=== PATIENT | female | born 2000 | race Caucasian/White ===

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

== ENCOUNTER 2024-03-26 10:44 | Outpatient (AMB) | payer OTHER, SELFPAY ==
--- NOTE | 2024-03-26 10:49 | A.OFFPC_ITS ---
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 Intake Note: new patient to establish care Enrollment Processor Required: No Allergies seasonal Allergy (Unknown, Uncoded 03/26/24 11:23) Hives Medication List - Last Reconciled 03/26/24 by ENDER Rivera No Known Home Meds Tobacco use date assessed: 03/26/24 Dental Screening Dental Screen Date: 03/26/24 Did you have a dental visit in the last 12 months?: Yes Did you have a dental problem in the last 6 months where you did not have access to dental care?: No Was dental information given to patient?: Patient has dentist HPI HPI Comments History of Present Illness Details 23 y/o F with hx of palpitations, family hx of cervical cancer (Mom), family hx of Breast ca (MGM & Paternal Aunt), seasonal allergies 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 The symptoms were persistent for about a week but resolved spontaneously. An evaluation was conducted including a 48-hour Holter monitor which identified mild tachycardia during sleep. She was referred to cardiology, but by the time the referral was processed, her symptoms had resolved. Her blood work, including thyroid function tests, during this period was normal. Since then, she has not experienced further episodes. Does correlate onset of sx w/ taking claritin for seasonal allergies, which she has since stopped. Past medical history is significant for seasonal allergies, which occasionally causes swollen tonsils and congestion attributed to allergic rhinitis. She has attempted to use Claritin, but discontinued due to concerns over cardiac symptoms. No further pharmacologic interventions have been pursued for her allergies. Health Maintenance - Immunizations: Current with flu vaccin e as required for nursing school. - Gynecological: Active with silv[facility] SERNA Pap smear completed in 2021. - Lifestyle: Engages in regular physical activity, including weight lifting and yoga; maintains a balanced diet. - Family history: Notified of familial b reast and cervical cancer history; advised to verify BRCA status. 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 - Education: Currently in nursing school with expected graduation in July. - Family: Lives with mother, stepfather, and two siblings. - Physical Activity: Regularly engages i n weight lifting and yoga. - Family History: Mother had cervical ca ncer, grandmother had breast cancer, and paternal aunt has breast cancer. Review of Systems - Cardiovascular: Denies current palpita tions. - Hematologic/Lymphatic: Denies swelling or tenderness. - Respiratory: Denies dyspnea. - Eyes: Denies headaches or visual mascorro es. - Musculoskeletal: Denies joint pain or swelling. - Genitourinary: Denies abnormal urinati on. - Neurologic: Denies headaches or dizzin ess. - Skin: Denies rashes or skin changes. Exam: General: Well developed, well nourished, in no acute distress. Appears stated age. Head: Normocephalic, atraumatic. Eyes: Pupils are equal, round and reactive to light and accommodation. Conjunctivae are clear. Vision grossly normal. Ears: TMs clear AU, EACS WNL Nose: Patent, without discharge. Mouth: There are no ulcers or lesions noted. No inflammation, no post nasal drip, no plaques nor exudates. Tonsillar hypertrophy Neck: Supple, no adenopathy or thyromegaly. Lungs: Clear to auscultation bilaterally. No rales, rhonchi or wheeze noted. Good air flow in all chahal. Heart: Regular rate and rhythm. No murmurs, click, rubs or gallops are noted. Abdomen: Bowel sounds present in all quadrants. The abdomen is soft, nontender, with no masses or organomegaly noted. No hernias are noted. Musculoskeletal: Joints are nontender, without swelling, redness, or effusions. Range of motion is observed to be normal. Pulses: Peripheral pulses are equal and palpable bilaterally. Extremities: No clubbing, cyanosis nor edema is noted. Neurologic: Gait and station normal. Cranial Nerves 2-12 intact. Motor strength grossly symmetrical and intact. No sensory loss. Balance normal. Skin: No rashes, ulcers, or lesions noted. Turgor is good. Skin color is good. Hair and nails are without abnormalities. Psych: Normal eye contact, affect and mood appropriate, and normal interactions. Patient is alert and appropriate to context. Results - Labs: Recent thyroid function tests no rmal per report. - Tests and Diagnostics: Holter monitor showed mild tachycardia during sleep. per report Plan - Request recent laboratory and diagnost ic records from previous healthcare facilities, including Holter and immunization records. - Discuss seasonal allergy management; c onsider non-pharmacological interventions like saline nasal rinses. - Encourage regular breast self-examinat ions and verify family BRCA testing results. - Continue physical activity routine, en courage yoga and gym activities for stress management. - Use patient portal for all non-emergen t communication to ensure direct contact with the medical team. - Defer labs as she reports she does not like needles and just had labs completed. Patient was informed and verbally consented to the use of an ambient scribe for clinic note documentation during this visit. Discussion Notes I discussed with the patient the resolution of her prior tachycardia symptoms and the lack of current symptoms. We reviewed the importance of maintaining up-to-date immunizations and health screenings, especially given her family history of cancer. The patient was advised to follow up on BRCA screenings within her family and complete any necessary genetic testing. The benefits of a healthy lifestyle were highlighted, including regular exercise and balanced nutrition. We also reviewed the management of her seasonal allergies, suggesting alternative measures like saline rinses, considering her sensitivity to medications such as Claritin. It was emphasized that communication should preferentially be through the patient portal to ensure timely and effective correspondence. Patient Instructions - Enroll in the patient portal for soraida r communication. - Maintain current exercise and dietary habits. - Investigate family BRCA testing status . - Manage seasonal allergies using non-me dication-based methods, and avoid Claritin if it exacerbates symptoms. - Perform regular breast self-exams. - Ensure all health records are up to da te, including immunizations and previous lab results. - Make a follow-up appointment as needed or if any new symptoms appear. - RTO 1 year for CPE sooner prn. [facility] Medical History (Updated 03/26/24 @ 15:09 by Shreya Buitrago [facility]) No pertinent past medical history No known health problems Surgical History (Updated 03/26/24 @ 10:59 by Chelsi Gates MA) No pertinent past surgical history Family History (Updated 03/26/24 @ 10:59 by Chelsi Gates MA) Father Mental health disorder Substance abuse Hypertension Maternal Grandmother Cancer Maternal Aunt Cancer Mother Cancer Brother Cardiovascular disease Social History (Updated 03/26/24 @ 10:57 by Chelsi Gates MA) Household Members: Family Both parents involved: Yes Caregiver staying overnight: No Housing: House Are you a primary school child care attendant to a significant other at home: No Do you presently have visiting nurse or other home services: No 75 years or older and lives alone: No Alcohol intake: current Alcohol intake frequency: a few times a month Patient Tobacco Use Status: Never used Tobacco e-Cigarette/Vaping Use: Never Used Second Hand Smoke Exposure: No Current occupational status: employed and student 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 1. Little interest or pleasure in doing things: not at all 2. Feeling down, depressed, or hopeless: not at all 3. Trouble falling or staying asleep, or sleeping too much: not at all 4. Feeling tired or having little energy: not at all 5. Poor appetite or overeating: not at all 6. Feeling bad about yourself - or that you are a failure or have let yourself or your family down: not at all 7. Trouble concentrating on things, such as reading the newspaper or watching television: not at all 8. Moving or speaking so slowly that other people could have noticed. Or the opposite - being so fidgety or restless that you have been moving around a lot more than usual: not at all 9. Thoughts that you would be better off or of hurting yourself in some way: not at all Total score: 0 Depression Screening Interpretation: Negative Depression Screening Done: Yes 53104 - PHQ-9 Billing: Yes Source: Developed by Drs. Anoop Colbert, Magalys Dixon, Raza Leal and colleagues, with an educational sergei from [employer]. Thrive Questionnaire Date Thrive assessed: 03/26/24 I am a: Patient What is your living situation today?: I have a steady place to live Within the past 12 months, did the food you bought not last and you didn't have the money to get more?: Never true Within the past 12 months, did you worry whether your food would run out before you got money to buy more?: Never true Do you have trouble paying for medicines?: No Do you have trouble getting transportation to medical appointments?: No Do you have trouble paying your heating and electricity bill?: No Do you have trouble taking care of your child, family member or friend?: No Do you have trouble with day-to-day activities such as bathing, preparing meals, shopping, managing finances, etc.?: No Are you currently unemployed and looking for a job?: No Are you interested in more education?: Yes Please select the resources that you would like help with: None Currently or been in a relationship where the following occur: No concerns reported THRIVE Score: 0 AUDIT C Alcohol Use Questionnaire (AUDIT-C) 1. How often do you have a drink containing alcohol?: Monthly or less 2. How many drinks containing alcohol do you have on a typical day when you are drinking?: 3 or 4 3. How often do you have six or more drinks on one occasion?: Never Total Score: 2 Score Reviewed/Action Taken: Yes ZEKE-7 AMB Questionnaire ZEKE-7 Date ZEKE - 7 assessed: 03/26/24 Feeling nervous, anxious, or on edge: 0 = Not at all Not being able to stop or control worryin = Not at all Worrying too much about different things: 0 = Not at all Trouble relaxin = Not at all Being so restless that it is hard to sit still: 0 = Not at all Becoming easily annoyed or irritable: 0 = Not at all Feeling afraid as if something awful might happen: 0 = Not at all Total ZEKE-7 score (0-4 normal; 5-9 mild; 10-14 moderate; 15-21 severe): 0 Source: Developed by Drs. Anoop Colbert, Magalys Dixon, Raza Leal and colleagues, with an educational sergei from [employer]. ZEKE-7 Assessment Billing ZEKE-7 Assessment Tool: ZEKE-7 Assessment 67499 Physical exam (Primary Care) Vital Signs: Last Vital Signs Temp 98.1 F 03/26/24 11:00 Pulse 97 03/26/24 11:00 Resp 13 03/26/24 11:00 BP 122/70 03/26/24 11:00 Pulse Ox 99 03/26/24 11:00 Oxygen Delivery Method Room Air 03/26/24 11:00 BMI result Body Mass Index 26.4 Tobacco/Smoking Status: Tobacco use Status Tobacco use date assessed 03/26/24 03/26/24 10:59 Patient Tobacco Use Status Never used Tobacco 03/26/24 10:59 e-Cigarette/Vaping Use Never Used 03/26/24 10:59 PHQ-9: PHQ-9 Score PHQ-9: Total score 0 03/26/24 11:37 Depression Screening Interpretation: Negative Thrive Assessment: Date of Thrive Assessment Date Thrive assessed 03/26/24 03/26/24 10:59 Currently or been in a relationship where the following occur: No concerns reported Coding Level of Care Code New Pt Prev Care 18-39yr(80655 Diagnoses Encounter for general adult medical examination without abnormal findings Z00.00 Family history of breast cancer Z80.3 Family history of cervical cancer Z80.49 Seasonal allergies J30.2 Chronic tonsillar hypertrophy J35.1 Additional Codes ZEKE-7 Assessment Billing - ZEKE-7 Assessment Tool: ZEKE-7 Assessment 69298 ([id number]) PHQ-9 - 81774 - PHQ-9 Billing: Yes ([id number]) Assessment & Plan Assessment & Plan (1) Encounter for general adult medical examination without abnormal findings: Code(s): Z00.00 - Encounter for general adult medical examination without abnormal findings (2) Family history of breast cancer: Comment: MGM and Paternal aunt Code(s): Z80.3 - Family history of malignant neoplasm of breast Category: Medical (3) Family history of cervical cancer: Comment: Mom Code(s): Z80.49 - Family history of malignant neoplasm of other genital organs Category: Medical (4) Seasonal allergies: Code(s): J30.2 - Other seasonal allergic rhinitis Category: Medical (5) Chronic tonsillar hypertrophy: Code(s): J35.1 - Hypertrophy of tonsils Category: Medical Plan . Medications: Discontinued ketorolac Discontinued Reason: Patient no longer taking 10 mg PO Q6H 5 days PRN 20 tabs 0RF pain Patient Instructions: Health screenings for women You should visit your health care provider from time to time, even if you are healthy. The purpose of these visits is to: Screen for medical issues Assess your risk for future medical problems Encourage a healthy lifestyle Update vaccinations and other preventive care services Help you get to know your provider in case of an illness Information Even if you feel fine, you should still see your provider for regular checkups. These visits can help you avoid problems in the future. For example, the only way to find out if you have high blood pressure is to have it checked regularly. High blood sugar and high cholesterol levels also may not have any symptoms in the early stages. A simple blood test can check for these conditions. There are specific times when you should see your provider or receive specific health screenings. The [place] Preventive Services Task Force publishes a list of recommended screenings. Below are screening guidelines for women ages 18 to 39. BLOOD PRESSURE SCREENING Your blood pressure should be checked at least once every 3 to 5 years if: Your blood pressure is in the normal range (top number less than 120 mm Hg and bottom number less than 80 mm Hg) You don't have risk factors for high blood pressure Ask your provider if you need your blood pressure checked more often if: The top number is 120 to 129 mm Hg or the bottom number is 70 to 79 mm Hg You have diabetes, heart disease, kidney problems, are overweight, or have certain other health conditions You have a first-degree relative with high blood pressure You are Black You had high blood pressure during a If the top number is 130 mm Hg or greater or the bottom number is 80 mm Hg or greater, this is considered stage 1 hypertension. Schedule an appointment with your provider to learn how you can reduce your blood pressure. Watch for blood pressure screenings in your area. Ask your provider if you can stop in to have your blood pressure checked. BREAST CANCER SCREENING Experts do not agree about the benefits of breast self-exams in finding breast cancer or saving lives. Talk to your provider about what is best for you. A screening mammogram is not recommended for most women under age 40. Your provider may discuss and recommend mammograms, MRI scans, or ultrasounds if you have an increased risk for breast cancer, such as: A mother or sister who had breast cancer at a young age (most often starting screening earlier than the age the close relative was diagnosed) You carry a high-risk genetic marker CERVICAL CANCER SCREENING Cervical cancer screening should start at age 21 years unless your provider advises otherwise. After the first test: Women ages 21 through 29 should have a Pap test every 3 years. Exoprts do not agree on whether HPV testing is recommended for this age group. Women ages 30 through 65 should be screened with either a Pap test every 3 years or the HPV test every 5 years or both tests every 5 years (called cotesting ). Women who have been treated for precancer (cervical dysplasia) should continue to have Pap tests for 20 years after treatment or until age 65, whichever is longer. If you have had your uterus and cervix removed (total hysterectomy), and you have not been diagnosed with cervical cancer or precancer (high grade cervical neoplasia), you do not need cervical cancer screening. CHOLESTEROL SCREENING Cholesterol screening should begin at: Age 45 for women with no known risk factors for coronary heart disease Age 20 for women with known risk factors for coronary heart disease Repeat cholesterol screening should take place: Every 5 years for women with normal cholesterol levels More often if changes occur in lifestyle (including weight gain and diet) More often if you have diabetes, heart disease, kidney problems, or certain other conditions DIABETES SCREENING You should be screened for diabetes starting at age 35 and then repeated every 3 years if you have no risk factors for diabetes. Screening may need to start earlier and be repeated more often if you have other risk factors for diabetes, such as: You have a first degree relative with diabetes. You are overweight or have obesity. You have high blood pressure, prediabetes, or a history of heart disease. Screening for diabetes should be done if you are planning to become and you are overweight and have other risk factors such as high blood pressure. DENTAL EXAM Go to the dentist once or twice every year for an exam and cleaning. Your dentist will evaluate if you need more frequent visits. EYE EXAM Have an eye exam every 5 to 10 years before age 40. If you have vision problems, have an eye exam every 2 years or more often if r ecommended by your provider. You should have an eye exam that includes an examination of your retina (back of your eye) at least every year if you have diabetes. IMMUNIZATIONS Commonly needed vaccines include: Flu shot: get one every year. COVID-19 vaccine: ask your provider what is best for you. Tetanus-diphtheria and acellular pertussis (Tdap) vaccine: have one at or after age 19 as one of your tetanus-diphtheria vaccines if you did not receive it as an adolescent. Tetanus-diphtheria: have a booster (or Tdap) every 10 years. Varicella vaccine: receive 2 doses if you never had chickenpox or the varicella vaccine. Hepatitis B vaccine: receive 2, 3, or 4 doses, depending on your exact circumstances. Measles, mumps, and rubella (MMR) vaccine: receive 1 to 2 doses if you are not already immune to MMR. Your provider can tell you if you are immune. Ask your provider about the human papillomavirus (HPV) vaccine if: You have not received the HPV vaccine in the past You have not completed the full vaccine series (you should catch up on this shot) Ask your provider if you should receive other immunizations if you have certain health problems that increase your risk for some diseases such as pneumonia. INFECTIOUS DISEASE SCREENING Women who are sexually active should be screened for chlamydia and gonorrhea up until age 25. Women 25 years and older should be screened for chlamydia and gonorrhea if at high risk. Screening for hepatitis C: All adults ages 18 to 79 should get a one-time test for hepatitis C. people should be screened at every . Screening for human immunodeficiency virus (HIV): All people ages 15 to 65 should get a one-time test for HIV. Depending on your lifestyle and medical history, you may also need to be screened for infections such as syphilis and HIV, as well as other infections. PHYSICAL EXAM All adults should visit their provider from time to time, even if they are healthy. The purpose of these visits is to: Screen for disease Assess your risk of future medical problems Encourage a healthy lifestyle Update your vaccinations and other preventive care services Maintain a relationship with a provider in case of an illness Your height, weight, and BMI should be checked at every exam. During your exam, your provider may ask you about: Depression and anxiety Diet and exercise Alcohol and tobacco use Safety issues, such as using seat belts, smoke detectors, and intimate partner violence Your medicines and risk for interactions SKIN SELF-EXAM Your provider may check your skin for signs of skin cancer, especially if you're at high risk, such as if you: Have had skin cancer before Have close relatives with skin cancer Have a weakened immune system OTHER SCREENING Talk with your provider about colon cancer screening if you have a strong family history of colon cancer or polyps, or if you have had inflammatory bowel disease or polyps yourself. Routine bone density screening of women under 40 is not recommended. Walk-In Care (Urgent Care): We Make it Easy Walk-in for urgent medical issues such as: ? Seasonal Allergies ? Insect Bites ? Cough ? Diarrhea ? Acute Asthma Attacks ? Back, Knee or Joint Pain ? Ear Infection ? Fever without a Rash ? Headaches ? Nausea ? [place], Rash or Skin Irritation ? Sore Throat ? Sports Physicals ? Vomiting Most insurances are accepted. Patients do not need to be part of the [facility] to seek care at the walk-in clinic. Locations [address] [place] [address] [place] [address] ? [phone] [facility] Walk-In Care in [place] provides services to ages 18 and over. Open Sunday-Sunday: 8 a.m. to 5 p.m. and Sunday: 9 a.m. to 3 p.m.* *Hours may vary due to staffing availability. To confirm Walk-In Care hours in [place], please call [phone]. [address] [place] [address] ? [phone] [facility] Walk-In Care in [place] provides services to ages 12 and over. Open Sunday-Sunday: 8 a.m. to 5 p.m. Hours may vary due to staffing availability. To confirm Walk-In Care hours in [place], please call [phone]. LABORATORY SERVICES: [facility] ? Primary Location [address] [place] [address] Sunday through Sunday 6:00 AM ? 5:00 PM Sunday 7:00 AM ? 11:00 AM* [phone] The [facility] is centrally located near the front entrance of the [facility] for easy outpatient access. Convenient parking is provided for outpatients. *Hours may vary due to staffing availability. To confirm Laboratory hours for any location, please call [phone]. Offsite Location For your convenience, we offer offsite laboratory draw stations at the following locations: [address] [place] [address], Dora Medrano [address], [address], [place] Sunday through Sunday 7:30 AM ? 1:00 PM* [phone] *Hours may vary due to staffing availability. To confirm Laboratory hours for any location, please call [phone]. [place] ? [facility] [address] [facility] Sunday through Sunday 6:00 AM ? 3:30 PM* Sunday 6:30 AM ? 3 PM* [phone] *Hours may vary due to staffing availability. To confirm Laboratory hours for any location, please call [phone]. [address] [facility] Sunday through Sunday 7:30 AM ? 4:00 PM* [phone] *Hours may vary due to staffing availability. To confirm Laboratory hours for any location, please call [phone] [place] [address] Sunday through 9:00 AM ? 4:00 PM* *Hours may vary due to staffing availability. To confirm Laboratory hours for any location, please call [phone]. Appointments are not necessary. Walk-ins are welcome. Like all the departments throughout the [facility], our Lab undergoes frequent reviews to ensure the quality and accuracy of test results, and our staff takes special pride in its status as a nationally accredited facility. Patient Portal: ONE PATIENT. ONE RECORD. BETTER CARE. [facility] has a fully integrated, cutting- edge mobile electronic health information system that has revolutionized the way we care for our patients and manage our organization. This system improves communication and coordination enabling us to provide safe, higher-quality care, and an overall positive experience for staff and patients. Our first priority, as always, is to deliver the highest quality care possible. The system is running in the background supporting that priority. This portal is for all [facility] services and practices. If you are experiencing any technical difficulties with enrolling or logging into the Patient Portal please complete the [facility] Patient Portal Technical Support Form. [facility] now offers a new secure on-line interactive tool for patients to review their health information ? ?Patient Portal. This interactive web portal will enable patients and their families to take an active role in their care by providing easy, secure access to their health information via the internet. The Patient Portal provides patients with instant access to their health information, including laboratory results, medications, allergies, demographic information, visit history, and more. In addition to managing their own care, parents and health care proxies with authorized consent will appreciate the ability to access the records of those individuals for whom they provide care. Please note: if you wish to gain access (Proxy) to another patient?s portal, you will be required to come to the Medical Records Department in person at [facility]. Both the patient giving proxy access and the proxy will need to provide photo identification and complete the appropriate authorization. The Patient Portal also allows track their appointments online. The [facility] Patient Portal also saves patients time by allowing them to submit updates to their demographic and contact information prior to their visits. Portal email notifications will also alert patients to any new activity on their portal, such as test results and new appointments. In order to initially enroll in the [facility] Patient Portal, you will need to enter some required information including the following: * your [facility] Medical Record number * your personal home email address * name * date of Please note: In order to enroll in the [facility] Patient Portal, we need to have your email address on file in your electronic medical record. ?The email address needs to be specific for one person (yourself) in order for your Portal enrollment to be successful. ?You can update your email address in person with our Registration staff when you are registering for a hospital visit. ?Otherwise, you will need to come to the Health Information Management (Medical Records) Department at [facility]. ?We are open from Sunday ? Sunday from 7:30 a.m. ? 4:30 p.m. ?You will be required to present a photo id. Once you have successfully enrolled in the Patient Portal, you will receive a one-time user id and password for the Portal, sent to your email address. ?This will allow you to log into the Patient Portal within 99 hrs and reset your own logon id and password, and define personal security questions. ?Once your permanent login and password have been set, you can log into the [facility] Patient Portal at any time via the blue button above or from the Portal Logon button on any page of the [facility] website. [facility] encourage all of our patients to enroll in Patient Portal as it presents a valuable opportunity for patients and their families to actively participate in their care and stay healthy Welcome to [facility]. ?We look forward to working with you.
[2024-03-26 11:00] VITALS: BP 122/70; PULSE 97; RESP 13; TEMP 36.7; O2SAT 99; BMI 26.4
--- OUTSIDE RECORDS SUMMARY | 2024-03-26 12:00 | XMS_ITS | Clinical Summary ---
Author Organization [facility] it Address [address] [place] [address] Care Team Providers Care Side Panel Hanger Name Role Phone Shagufta Richter MD Primary Care Provider [phone] Allergies No known active allergies Medications Medication Sig Dispensed Refills Start Date End Date Status clindamycin-benzoyl peroxide (DUAC) 1.2-5% gel APPLY EVERY MORNING FOR FACE OR SPOT TREATMENT NEEDED 04/09/2023 Active tretinoin (RETIN-A) 0.025 % cream Apply topically at bedtime. Active Active Problems Problem Noted Date Diagnosed Date Allergic rhinitis 02/17/2024 Overview (02/17/2024): Estrella prn; spring Hypovitaminosis D 09/07/2022 Overview (02/17/2024): 09/06/22 level 18 Recommend VItmain D 3 2000 IU daily Acne vulgaris 06/13/2021 Dysmenorrhea in adolescent 06/15/2017 Immunizations Name Administration Dates Next Due DTaP (Infanrix) 6wks to less than 7yo ,12/19/2002,01/23/2002,11/25,2001 DExP-DIQ-TLI (Pentacel) 2mo to less than 5yo 12/19/2002,01/23/2002,2001,09/27 HPV 9-valent (Gardisil) 9yo to less than 46yo 03/10/2015 HPV, Quadrivalent 08/27/2013 HepB-CpG (Heplisav-B) 18yo and older 08/17/2023 Hepatitis B (Limvlai-O-Swufb , Recombivax HB-Adult) 19yo and older 05/12/2023 Hepatitis B Pediatric (Enger ix B; Recombivax HB) to less than 20 yo 01/23/2002,2001,2001 IPV Inactivated polio (Ipol) 6wks and older 10/19/2005,07/29/2002,2001,09/27 Influenza trivalent, 0.5mL, preservative free (Fluarix; FluLaval; Fluzone) ages 6mo and older (Afluria) 3 years and older 05/28/2019,04/16/2017,04/11/2016,03/10 Influenza, Unspecified 01/16/2023 Influenza, live, intranasal, trivalent (FluMist) 2yo to less than 50yo 03/22/2012 MMR, measles mumps and rubel la Live (Priorix; M-M-R II) 12mo and older 10/19/2005,07/29/2002 Meningococcal MCV4P 05/22/2018,08/27/2013 Pneumococcal Conjugate Vacci ne, 7 Valent 12/19/2002,07/29/2002,2001,09/27 Tdap Tetanus diptheria acell ular pertussis (Boostrix; Adacel) 7yo and older 08/27/2013 Varicella live (Varivax) 12m o and older 10/19/2005,07/29/2002 Surgical History Surgery Date Site/Laterality Comments OTHER SURGICAL HISTORY PROCEDURE: DENIES PREVIOUS SURGERY Medical History Medical History Date Comments Cervical adenitis 08/13 DX:Cervical ad enitis GERD (gastroesophageal reflux disease) 03/14 DX:GERD (gastroesophageal reflux disease); COMMENT: prilosec; 07/15 pepcid Allergic rhinitis 03/12 DX:Allergic rh initis; COMMENT: claritan AOM (acute otitis media) DX:AOM (acute otitis media); COMMENT: 12/04, 06/05, 07/05, 08/10 Hypovitaminosis D 09/07/2022 DX:Hypovitamin osis D; COMMENT: 09/06/22 level 18 Recommend VItmain D 3 2000 IU daily Family History Medical History Relation Name Comments Allergies Brother Asthma Brother ADD / ADHD Father Alcohol/Drug Father Depression Father DALILA disease Grandparent MGM Hyperlipidemia Grandparent MGF Other cancer Grandparent MGM cervical ca Other cancer Mother early cervical ca-treated Diabetes Mother's side mat great uncl e Migraines Mother's side mat aunt Other cancer Mother's side multiple mater nal relatives with breast ca Allergies Sister Relation Name Status Comments Brother Alive Kieran Fischer Father Cameron Ritchie - 03/2013; bipolar, anxiety, addiction Grandparent Mother Alive Mother's side Sister Neto fischer 08/01/11 Social History Tobacco Use Types Packs/Day Years Used Date Smoking Tobacco: Never Smokeless Tobacco: Never Alcohol Use Standard Drinks/Week Comments Yes 0 (1 standard drink = 0.6 oz pur e alcohol) Sex and Gender Information Value Date Recorded Sex Assigned at Not on file Gender Identity Not on file Sexual Orientation Not on file Obstetrics History Last Filed Vital Signs Vital Sign Reading Time Taken Comments Blood Pressure 100/60 10/09/2023 11:42 AM EDT Pulse 111 10/09/2023 11:42 AM EDT Temperature - - Respiratory Rate - - Oxygen Saturation - - Inhaled Oxygen Concentration - - Weight 66 kg (145 lb 9.6 oz) 10/09/2023 11:42 AM EDT Height 160 cm (5' 3 ) 10/09/2023 11:42 AM EDT Body Mass Index 25.79 10/09/2023 11:42 AM EDT Plan of Treatment Upcoming Encounters Date Type Department Care Team (Late st Contact Info) Description 07/09/2024 8:30 AM EDT Office Visit Adult Medicine - [address] [address] Rigoberto Davalos PA [address] [place] [address] Health Maintenance Due Date Last Done Comments Depression Screening 02/11/2022 Hepatitis C Screening 02/11/2022 Social Influencers of Health Screening 02/11/2022 DTaP,Tdap,and Td Vaccines (7 - Td or Tdap) 08/28/2023 08/27/2013, 10/19/2005, 12/19/2002, Additional history exists COVID-19 Vaccine ( season) 2023 03/02/2021, 07/13/2020, 06/15/2020 Influenza Vaccine (#1) 2023 , 05/28/2019, 04/16/2017, Additional history exists Gonorrhea/Chlamydia Screening 07/30/2024 07/31/2023 Cervical Cancer Screening: Pap Smear 07/28/2025 07/28/2022, 07/28/2022, 07/28/2022 Cholesterol Screening (Lipid Panel) 05/15/2028 05/16/2023 HIB Vaccines Completed 12/19/2002, 01/04, 2001, Additional history exists Pneumococcal Vaccine: Pediatrics (0 to 5 Years) and At-Risk Patients (6 to 64 Years) Completed 12/19/2002, 07/29/2002, 2001, Additional history exists IPV Vaccines Completed 10/19/2005, 12/03, 07/29/2002, Additional history exists MMR Vaccines Completed 10/19/2005, 07/29/2002 Varicella Vaccines Completed 10/19/2005, 07/29/2002 HPV Vaccines Completed 03/10/2015, 08/27/2013 Meningococcal ACWY Vaccine Completed 05/22/2018, HIV Screening Completed 09/06/2022 Hepatitis B Vaccines Completed 08/17/2023, 05/12/2023, 01/23/2002, Additional history exists Hepatitis A Vaccines Aged Out No long er eligible based on patient's age to complete this topic RSV Immunization Patients Under 20 months Aged Out No longer eligible based on patient's age to complete this topic Procedures Procedure Name Priority Date/Time Associated Diagnosis Comments GONORRHEA/CHLAMYDIA SCRREENING Routine 07/31/2023 LIPID PANEL Routine 05/16/2023 HIV SCREENING Routine 09/06/2022 PAP SMEAR Routine 07/28/2022 from Last 3 Months or Most Recently Relevant to Health Maintenance Results * Gonorrhea/Chlamydia Screening (07/31/2023) Gonorrhea/Chla mydia Screening abstracted Historical [facility] * Lipid panel (05/16/2023) Pathologist [facility] LDL/HDL Ratio 2 0 - 4 Triglycerides 86 0 - 150 mg/dL Cholesterol 170 0 - 200 mg/dL HDL 74 40 mg/dL LDL Cholesterol 79 0 - 100 mg/dL Blood Venous blood specimen / Unknown Historical Provider [facility] LAB BLOOD ORDERAB LES * HIV Screening (09/06/2022) Pathologist [facility] HIV Screening abstracted Historical Provider [facility] * Pap smear (07/28/2022) 07/28/2022 Narrative HISTORICAL TESTING LAB RESULTING AGENCY - 08/07/2022 6:50 AM EDT [id number] THINPREP PAP, IMAGED: NEGATIVE FOR SQUAMOUS INTRAEPITHELIAL LESION AND MALIGNANCY . ANAI MORSE(ASCP) (CASE ELECTRONICALLY SIGNED 08 05 2022) ADEQUACY: SATISFACTORY ENDOCERVICAL/TRANSFORMATION ZONE COMPONENT PRESENT. SOURCE: THINPREP PAP HPV IF ASCUS, CERVICAL, IMAGED CLINICAL INFORMATION: HPV IF DIAGNOSIS OF ASCUS. PAP HX: NEGATIVE. LMP: 07/04/22. [Z12.4]. Anastacia Kinsey [facility] LAB CYTOLOGY ORDERAB LES HISTORICAL TESTING LAB RESULTING AGENCY from Last 3 Months or Most Recently Relevant to Health Maintenance Care Teams Side Panel Hanger Relationship Specialty Start Date End Date Shagufta Richter MD [address] [place] [address] PCP - General 12/25/22
== END 2024-03-26 11:46 | disposition home or self-care (01) ==
PROVIDERS: PCP Nurse Practitioner Family; Visit Provider Nurse Practitioner Family
DX: Z00.00 Encounter for general adult medical examination without abnormal findings (principal); Z80.3 Family history of malignant neoplasm of breast; Z80.49 Family history of malignant neoplasm of other genital organs; J30.2 Other seasonal allergic rhinitis; J35.1 Hypertrophy of tonsils

== ENCOUNTER → 2024-03-26 10:44 | Outpatient (BNVA) | payer OTHER, SELFPAY | PROVIDERS: PCP Nurse Practitioner Family; Visit Provider Nurse Practitioner Family | DX: Z00.00 Encounter for general adult medical examination without abnormal findings (principal); J30.2 Other seasonal allergic rhinitis; J35.1 Hypertrophy of tonsils; Z80.3 Family history of malignant neoplasm of breast; Z80.49 Family history of malignant neoplasm of other genital organs | CPT/HCPCS: 96127 ==

== ENCOUNTER 2025-02-02 13:40 | Outpatient (REF) | payer OTHER, SELFPAY ==
--- OUTSIDE RECORDS SUMMARY | 2025-02-02 17:58 | XMS_ITS | Clinical Summary ---
Author Organization [facility] [address] [facility] lding Address [address] [place] [address] Phone Care Team Providers Care [employer] Name Role Phone Shagufta Richter MD Primary Care Provider [phone] Allergies No known active allergies Medications clindamycin-bert zoyl peroxide (DUAC) 1.2-5% gel APPLY EVERY MORNING FOR FACE OR SPOT TREATMENT NEEDED Active tretinoin (RETIN-A) 0.025 % cream Apply topically at bedtime. Active Active Problems Problem Noted Date Diagnosed Date Allergic rhinitis 02/17/2024 Overview (02/17/2024): Estrella prn; spring Hypovitaminosis D 09/07/2022 Overview (02/17/2024): 09/06/22 level 18 Recommend VItmain D 3 2000 IU daily Acne vulgaris 06/13/2021 Dysmenorrhea in adolescent 06/15/2017 Immunizations Immunization Administration Dates Next Due DTaP (Infanrix) 6wks to less than 7yo ,12/19/2002,01/23/2002,11/25,2001 WIbL-VZP-MUO (Pentacel) 2mo to less than 5yo 12/19/2002,01/23/2002,2001,09/27 HPV 9-valent (Gardisil) 9yo to less than 46yo 03/10/2015 HPV, Quadrivalent 08/27/2013 HepB-CpG (Heplisav-B) 18yo and older 08/17/2023 Hepatitis B (Jyrjsve-U-Ucpty , Recombivax HB-Adult) 19yo and older 05/12/2023 [...] Comments Brother Alive Kieran Fischer Father Cameron Swenson - 03/2013; bipolar, anxiety, addiction Grandparent Mother Alive Mother's side Sister Neto fischer 08/01/11 Social History Tobacco Use Types Packs/Day Years Used Date Smoking Tobacco: Never Smokeless Tobacco: Never Alcohol Use Standard Drinks/Week Comments Yes 0 (1 standard drink = 0.6 oz pur e alcohol) occ Comments No Sex and Gender Information Value Date Recorded Sex Assigned at Not on file Legal Sex Female 6:58 AM EST Gender Identity Not on file Sexual Orientation Not on file Obstetrics History Para Term AB IAB SAB Ectopic Multiple Livin g Live Births 0 0 0 0 0 0 0 0 Last Filed Vital Signs Vital Sign Reading Time Taken Comments Blood Pressure 111/68 05/02/2024 1:13 PM EST Pulse 97 05/02/2024 1:13 PM EST Temperature - - Respiratory Rate - - Oxygen Saturation - - Inhaled Oxygen Concentration - - Weight 67.1 kg (148 lb) 05/02/2024 1:13 PM EST Height 160 cm (5' 3 ) 10/09/2023 11:42 AM EDT Body Mass Index 26.22 10/09/2023 11:42 AM EDT Plan of Treatment Health Maintenance Due Date Last Done Comments Meningococcal B Vaccine (1 of 2 - Standard) 2017 Hepatitis C Screening 02/11/2022 Social Influencers of Health Screening 02/11/2022 Depression Screening 03/05/2024 Gonorrhea/Chlamydia Screening 07/30/2024 07/31/2023 COVID-19 Vaccine ( season) 2024 03/20/2022, 12/24/2021, 03/02/2021, Additional history exists Influenza Vaccine (#1) 2024 4, 01/16/2023, 11/18/2022, Additional history exists Cervical Cancer Screening: Pap Smear 07/28/2025 07/28/2022, 07/28/2022 Cholesterol Screening (Lipid Panel) 05/15/2028 05/16/2023 DTaP,Tdap,and Td Vaccines (8 - Td or Tdap) 08/16/2033 08/17/2023, 08/27/2013, 10/19/2005, Additional history exists RSV Immunization Adult Patients (1 - 1-dose 75+ series) 2076 HIB Vaccines Completed 12/19/2002, 12/03, 01/23/2002, Additional history exists Pneumococcal Vaccine: Pediatrics (0 to 5 Years) and At-Risk Patients (6 to 49 Years) Completed 12/19/2002, 07/29/2002, 2001, Additional history exists IPV Vaccines Completed 10/19/2005, 12/03, 07/29/2002, Additional history exists MMR Vaccines Completed 10/19/2005, 07/29/2002 Varicella Vaccines Completed 10/19/2005, 07/29/2002 HPV Vaccines Completed 03/10/2015, 08/27/2013 Meningococcal ACWY Vaccine Completed 05/22/2018, HIV Screening Completed 09/06/2022 Hepatitis B Vaccines Completed 08/17/2023, 05/12/2023, 05/12/2023, Additional history exists Hepatitis A Vaccines Aged [...] (07/31/2023) Gonorrhea/Chla mydia Screening abstracted Historical Provider HEALTH MAINTENANCE Final Result * Lipid panel (05/16/2023) Pathologist [facility] [place] LDL/HDL Ratio 2 0 - 4 Triglycerides 86 0 - 150 mg/dL Cholesterol 170 0 - 200 mg/dL HDL 74 >=40 mg/dL LDL Cholesterol 79 0 - 100 mg/dL Blood Venous blood specimen / Unknown Historical Provider MD LAB BLOOD ORDERABLES Jeaneth l Result * HIV Screening (09/06/2022) Pathologist [facility] [place] HIV Screening abstracted Historical Provider HEALTH MAINTENANCE Final Result * Pap smear (07/28/2022) 07/28/2022 Narrative HISTORICAL TESTING LAB RESULTING AGENCY - 08/07/2022 6:50 AM EDT [id number] THINPREP PAP, IMAGED: NEGATIVE FOR SQUAMOUS INTRAEPITHELIAL LESION AND MALIGNANCY . ANAI MORSE(ASCP) (CASE ELECTRONICALLY SIGNED 08 05 2022) ADEQUACY: SATISFACTORY ENDOCERVICAL/TRANSFORMATION ZONE COMPONENT PRESENT. SOURCE: THINPREP PAP HPV IF ASCUS, CERVICAL, IMAGED CLINICAL INFORMATION: HPV IF DIAGNOSIS OF ASCUS. PAP HX: NEGATIVE. LMP: 07/04/22. [Z12.4]. Result [facility] Anastacia LOYA LAB CYTOLOGY ORDERABLES Final R esult HISTORICAL TESTING LAB RESULTING AGENCY from Last 3 Months or Most Recently Relevant to Health Maintenance Insurance [facility] [place] [id number] Care Teams [employer] Relationship Specialty Start Date End Date Shagufta Richter MD PCP - General 12/25/22
[2025-02-03 15:38] LABS: CT PCR NOT DETECTED (Not Detect.); NG PCR NOT DETECTED (Not Detect.)
== END 2025-02-02 13:41 | disposition home or self-care (01) ==
LOC: HO.LNP 13:40
PROVIDERS: PCP Nurse Practitioner Family; Visit Provider Advanced Practice Midwife
DX: Z01.419 Encounter for gynecological examination (general) (routine) without abnormal findings (principal); Z20.2 Contact with and (suspected) exposure to infections with a predominantly sexual mode of transmission
CPT/HCPCS: 87491; 87591; 87626; 88175

== ENCOUNTER 2025-02-02 13:40 | Outpatient (AMB) | payer OTHER, SELFPAY ==
--- NOTE | 2025-02-02 14:02 | MHC.OFFVIS ---
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 Her previous care was at [facility] She has the following concerns: none She is in a relationship x 5+yrs. She denies any issues of DV Exercise: regular Nutrition/calcium: adequate intake Contraception: condoms, had been using the control pills. But stopped in June of 2023, states she wanted to give her body a break. As she had been on these controls pills for 10 years. 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 Last mammo: n/a [facility] Medical History (Updated 02/02/25 @ 16:09 by Thelma Martinez CNM) History of ovarian cyst No pertinent past medical history No known health problems Surgical History No pertinent past surgical history Family History (Updated 02/02/25 @ 16:10 by Thelma Martinez CNM) Father Mental health disorder Substance abuse Hypertension Maternal Grandmother Cancer Maternal Aunt Cancer Mother Cervical cancer Brother Cardiovascular disease Paternal Aunt Breast cancer, Onset Age: 60 Social History (Updated 02/02/25 @ 16:16 by Thelma Martinez CNM) Household Members: Family Both parents involved: Yes Caregiver staying overnight: No Housing: House Are you a primary pediatric care coordinator to a significant other at home: No Do you presently have visiting nurse or other home services: No 75 years or older and lives alone: No Alcohol intake: current Alcohol intake frequency: a few times a month Patient Tobacco Use Status: Never used Tobacco e-Cigarette/Vaping Use: Never Used Second Hand Smoke Exposure: No Current occupational status: employed 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[place], 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 Cognitive needs: No Hearing needs: No Vision needs: No Female Reproductive History Menstrual Age of Menarche: 12 Duration of menses: 3-5 days Date of last menstrual period: 01/10/25 control method: condoms Total pregnancies: 0 History of abnormal pap smear: No Review of Systems Const Reports no additional complaints Eyes Reports no additional complaints ENT Reports no additional complaints Card Reports no additional complaints Resp Reports no additional complaints GI Reports no additional complaints Reports as per HPI Skin/Breast Reports system reviewed and no additional complaints, except as documented Physical Exam Vital Signs: Last Vital Signs BP 114/72 02/02/25 14:09 Const General: cooperative, healthy appearing and no acute distress Orientation/consciousness: patient oriented x3 HEENT Head: Yes normal to inspection and Yes normocephalic Ears: external ears normal General nose exam: Normal external nose present Neck Neck: Yes normal visual inspection Chest Breast/axilla inspection: normal inspection of the breasts, normal inspection of the axillae and Other (No skin changes, peau d orange, or nipple discharge noted) Breast/axilla palpation: normal palpation of the breasts, normal palpation of the axillae, no axillary lymphadenopathy and other (fibrocystic breast changes bilat) Resp Effort & Inspection: normal respiratory effort and able to speak in complete sentences GI Inspection: No distended Palpation (GI): Soft to palpation, nontender and no masses Percussion: Yes normal to percussion Rectal Exam - Female: No External hemorrhoid(s) present External Female Exam: normal external appearance and normal appearance of the urethra Speculum Exam - Vagina: normal appearance of the vagina and normal vaginal discharge Speculum Exam - Cervix: normal appearance of the cervix and normal palpation (neg CMT) Bimanual exam- vagina & uterus: normal bimanual exam, normal palpation (neg CMT), uterine mobility normal and non-tender Bimanual Exam- Adnexa, other: no masses and No adnexal tenderness Skin General skin exam: no rashes or lesions noted Neuro General: patient oriented x3 and moves all extremities Extrem General: Yes full ROM Psych Speech and movement: Normal speech and movement present Affect: normal affect Attitude: cooperative Thought process: Normal thought process present Assessment & Plan Assessment & Plan (1) Encounter for screening for malignant neoplasm of cervix: Code(s): Z12.4 - Encounter for screening for malignant neoplasm of cervix (2) Well woman exam with routine gynecological exam: Code(s): Z01.419 - Encounter for gynecological examination (general) (routine) without abnormal findings (3) Screening breast examination: Code(s): Z12.39 - Encounter for other screening for malignant neoplasm of breast (4) Encounter for screening examination for sexually transmitted disease: Code(s): Z11.3 - Encounter for screening for infections with a predominantly sexual mode of transmission Plan During the visit, the following areas of concern were addressed: Monitoring of the menstrual cycle Contraception, including options and instructions, risks and benefits Pre conception counseling, including assuring a diet with sufficient and folic acid of where supplementation prior to conception, avoidance of alcohol, smoking or other harm for medications or drugs [ ] Regular exercise Healthy lifestyle STD strategies to avoid exposure Domestic violence Health Maintenance and Screening -Reviewed ASCCP guidelines for Paps and yearly (bi-yearly ) pelvic exam. -Reviewed and encouraged diet and exercise for cardiovascular and bone health -Reviewed breast self-awareness. Importance of yearly mammogram after age 40 (earlier if first-degree relative with breast cancer at a younger age ) Discuss use of 3 times per week weight-bearing exercise, vitamin D3 and servings of dietary calcium daily for bone health. -continue to follow with PCP for general medical care, immunizations. Family and personal history of cancer reviewed. Genetic screening optional RTO one year or sooner diana Martinez CNM Note about provider documentation : If you or the patient named in this chart and are reviewing your medical notes, please note that medical documentation is often written with abbreviations and medical terminology, and directed for other providers who may be involved in your care as well. Documentation is critical to record what has happened, what tests were ordered, and so they are interpreted with the resulting diagnoses. These nodes have been made available for patient review but not specifically written for the patient. Important health information is always given to my patients in clinical instructions. Please review your after visit summary and our contact our clinical staff if you have any questions. Orders: Orders Pap Smear Today Z01.419 - Encounter for gynecological examination (general) (routine) without abnormal findings, Z11.3 - Encounter for screening for infections with a predominantly sexual mode of transmission, Z12.4 - Encounter for screening for malignant neoplasm of cervix CT NG by PCR Vag/Cerv Today Z01.419 - Encounter for gynecological examination (general) (routine) without abnormal findings, Z11.3 - Encounter for screening for infections with a predominantly sexual mode of transmission Coding Level of Care Code New Pt Prev Care 18-39yr([id number] Diagnoses Encounter for screening for malignant neoplasm of cervix Z12.4 Well woman exam with routine gynecological exam Z01.419 Screening breast examination Z12.39 Encounter for screening examination for sexually transmitted disease Z11.3
[2025-02-02 14:09] VITALS: BP 114/72; BMI 23.9
--- OUTSIDE RECORDS SUMMARY | 2025-02-02 17:14 | XMS_ITS ---
Author Name [facility] Organization Unknown History of Medication Use Medication Directions Dispensed Refills Start Date End Date Stat us guaiFENesin (MUCINEX) 600 mg Ta12 Take 600-1,200 mg by mouth 2 (two) times a day as needed (Cough) for up to 7 days Max dose 2,400mg per day. 06/06/2024 active fluticasone propionate (FLONASE) 50 mcg/actuation nasal spray 2 sprays in each nostril daily x1 week then 1-2 sprays in each nostril daily. (use smallest dose possible for symptom control after week 1). 10/01/2023 06/06/2024 aborted tretinoin (RETIN-A) 0.025 % cream APPLY TO FACE EVERY EVENING FOR FACE ACNE 08/21/2023 active cholecalciferol, vitamin D3, (cholecalciferol) 25 mcg (1,000 unit) tablet Take 1,000 Units by mouth daily active Allergies Allergen Reaction Severity Comment Documented Date Source Statu s LORATADINE OTHER (SEE COMMENTS) palpitations 10/05/2023 [facility] active Problems Problem Status Onset Date Problem Type Date of Resolution Source Upper respiratory infection, acute active EncounterDiagnosisAct CT [facility] Sore throat active EncounterDiagnosisAct [facility] Encounters Encounter Type Encounter Reason Primary Diagnosis Location Date Ambulatory Mouth or throat complaint Acute upper respiratory infection, unspecified [facility] 06/06/2024 Care Team Organization Name Specialty Phone Email Start Date End Da te [facility] Shagufta Richter Primary Care 06/06/2024
== END 2025-02-03 16:13 | disposition home or self-care (01) ==
LOC: HO.HWSM 13:40
PROVIDERS: PCP Nurse Practitioner Family; Visit Provider Advanced Practice Midwife
DX: Z01.419 Encounter for gynecological examination (general) (routine) without abnormal findings (principal); Z12.39 Encounter for other screening for malignant neoplasm of breast; Z11.3 Encounter for screening for infections with a predominantly sexual mode of transmission
CPT/HCPCS: 99385; 99459